=== PATIENT | female | born 1975 | race American Indian/Alaskan Native ===

== ENCOUNTER 2019-03-23 10:39 | Emergency (ER) | payer BC, OTHER ==
--- NOTE | 2019-03-23 11:14 | Emergency Department Report ---
Chief Complaint: Abdominal Pain Stated Complaint: SEVERE ABD PAIN Time Seen by Provider: 03/23/19 11:11 - HPI History of Present Illness: pt presents to the ED with c/o left flank to LLQ pain that began two days subjective fever (+)nausea (+) constipation, had small hard BM last night no V/D PMHx thyroidectomy, fibroids, IUD occ drinker no smoker no drug use MSE screening note: Focused history and physical exam performed. Due to findings the following was ordered: labs, UA, urine preg ED Disposition for MSE Condition: Stable Instructions: Abdominal Pain (ED)
[2019-03-23 11:39] LABS: Basophils % (Auto) 0.5 % (0.0-1.8); Eosinophils # (Auto) 0.1 K/mm3 (0.0-0.4); Eosinophils % (Auto) 0.8 % (0.0-4.3); Hematocrit 38.9 % (30.3-42.9); Hemoglobin 13.4 gm/dl (10.1-14.3); Lymphocytes % (Auto) 43.3 % (13.4-35.0); Mean Corpuscular HGB Conc 35 % (30-34); Mean Corpuscular Volume 87 fl (79-97); Monocytes # (Auto) 0.3 K/mm3 (0.0-0.8); Monocytes % (Auto) 4.3 % (0.0-7.3); Platelet Count 315 K/mm3 (140-440); Red Blood Count 4.47 M/mm3 (3.65-5.03); Red Cell Distribution Width 13.9 % (13.2-15.2)
[2019-03-23 12:00] LABS: Alanine Aminotransferase 14 units/L (7-56); BUN/Creatinine Ratio 11; Blood Urea Nitrogen 9 mg/dL (7-17); Calcium 8.8 mg/dL (8.4-10.2); Hemolysis Index 4
[2019-03-23] MEDS ORDERED: SUBLIMAZE IV ONE (12:44)
[2019-03-23] MEDS ORDERED: ZOFRAN IV ONE (12:44)
[2019-03-23] MEDS ORDERED: NACL 0.9% 1000 ML 1,000 ML IV ONE (12:44)
--- NOTE | 2019-03-23 12:49 | Emergency Department Report ---
HPI - General Chief Complaint: Abdominal Pain Time Seen by Provider: 03/23/19 11:11 - HPI HPI: Room 9 The patient is a 43-year-old female presenting with a chief complaint of abdominal pain. Patient states her symptoms began 2 days ago with intermittent left flank left lower quadrant abdominal pain. Patient describes the pain as sharp and dull in nature. Patient is to nausea but denies vomiting dysuria or hematuria. The patient is to subjective fever. The patient states she's been taking IV Profenal home but it has not helped Location: Left flank Duration: 2 days Quality: Sharp/Dull Severity: 09/03 Modifying factors: [see above] Context: [see above] Mode of transportation: [not driving] ED Past Medical Hx - Past Medical History Previous Medical History?: Yes Additional medical history: Thyroidectomy 2009,fibroids,IUD - Surgical History Additional Surgical History: Hernia repair, Ovarian cyst removal - Family History Family history: no significant - Social History Smoking Status: Never Smoker Substance Use Type: Alcohol (occasional) - Medications Home Medications: Home Medications Medication Instructions Recorded Confirmed Last Taken Type Famotidine/Ca Carb/Mag Hydrox 1 each PO BID #20 tab.chew 02/21/17 Unknown Rx [Pepcid Complete Tablet Chew] Levothyroxine (Nf) [Synthroid (Nf)] 200 mcg PO QAM #30 tablet 02/21/17 Unknown Rx Sulfamethoxazole/Trimethoprim 1 each PO BID #14 tablet 02/21/17 Unknown Rx [Bactrim DS TAB] oxyCODONE /ACETAMINOPHEN [Percocet 1 tab PO QHS PRN #10 tablet 02/21/17 Unknown Rx 5/325] HYDROcodone/ACETAMINOPHEN [[place] 1 - 2 each PO Q6H PRN #14 tablet 03/23/19 Unknown Rx 5-325 Tablet] Ibuprofen [Motrin 800 MG tab] 800 mg PO Q8HR PRN #20 tablet 03/23/19 Unknown Rx ED Review of Systems ROS: Stated complaint: SEVERE ABD PAIN Other details as noted in HPI Constitutional: fever (subjective) Eyes: denies: eye pain ENT: denies: throat pain Respiratory: no symptoms reported Cardiovascular: denies: chest pain Endocrine: no symptoms reported Gastrointestinal: abdominal pain, nausea. denies: vomiting Genitourinary: denies: dysuria, hematuria Musculoskeletal: back pain Neurological: denies: headache Physical Exam - Physical Exam Vital Signs: Vital Signs 03/23/19 11:11 Temperature 98 F Pulse Rate 89 Respiratory 18 Rate Blood Pressure 122/81 O2 Sat by Pulse 97 Oximetry Physical Exam: GENERAL: The patient is well-developed well-nourished female lying on stretcher appearing to be in mild discomfort. [] HEENT: Normocephalic. Atraumatic. Extraocular motions are intact. Patient has moist mucous membranes. NECK: Supple. Trachea midline CHEST/LUNGS: Clear to auscultation. There is no respiratory distress noted. HEART/CARDIOVASCULAR: Regular. There is no tachycardia. There is no gallop rub or murmur. ABDOMEN: Abdomen is soft, with tenderness to palpation in the left lower quadrant and left upper quadrant.. Patient has normal bowel sounds. There is no abdominal distention. SKIN: There is no rash. There is no edema. There is no diaphoresis. NEURO: The patient is awake, alert, and oriented. The patient is cooperative. The patient has normal speech MUSCULOSKELETAL: There is left CVA tenderness. There is no evidence of acute injury. ED Course Vital Signs 03/23/19 11:11 Temperature 98 F Pulse Rate 89 Respiratory 18 Rate Blood Pressure 122/81 O2 Sat by Pulse 97 Oximetry ED Medical Decision Making - Lab Data Result diagrams: 03/23/19 11:20 03/23/19 11:20 Laboratory Tests 03/23/19 03/23/19 03/23/19 11:20 11:20 11:55 WBC 7.0 RBC 4.47 Hgb 13.4 Hct 38.9 MCV 87 MCH 30 MCHC 35 H RDW 13.9 Plt Count 315 Lymph % (Auto) 43.3 H [place] % (Auto) 4.3 Eos % (Auto) 0.8 Baso % (Auto) 0.5 Lymph # 3.0 [place] # 0.3 Eos # 0.1 Baso # 0.0 Seg Neutrophils % 51.1 Seg Neutrophils # 3.5 Sodium 140 Potassium 3.7 Chloride 102.9 Carbon Dioxide 26 Anion Gap 15 BUN 9 Creatinine 0.8 Estimated GFR > 60 BUN/Creatinine Ratio 11 Glucose 124 H Calcium 8.8 Total Bilirubin 1.20 AST 13 ALT 14 Alkaline Phosphatase 79 Total Protein 7.0 Albumin 4.0 Albumin/Globulin Ratio 1.3 Lipase 32 Urine Color Yellow Urine Turbidity Cloudy Urine pH 5.0 Ur Specific [place] 1.031 H Urine Protein 30 mg/dl Urine Glucose (UA) Neg Urine Ketones Neg Urine Blood Neg Urine Nitrite Neg Urine Bilirubin Neg Urine Urobilinogen 4.0 Ur Leukocyte Esterase Neg Urine WBC (Auto) 1.0 Urine RBC (Auto) 2.0 U Epithel Cells (Auto) 33.0 H Urine Bacteria (Auto) 1+ Urine Mucus Few Urine HCG, Qual Negative - Radiology Data Radiology results: report reviewed (CT abdomen and pelvis), image reviewed (CT abdomen and pelvis) [facility] [address] [place] [address] Cat Scan Report Signed Patient: DESTINY LEIVA MR#: [id number] : 1975 Acct:[id number] Age/Sex: 43 / F ADM Date: 03/23/19 Loc: ED Attending Dr: Ordering Physician: ANIL CHEN MD Date of Service: 03/23/19 Procedure(s): CT abdomen pelvis wo/w con Accession Number(s): [id number] cc: ANIL CHEN MD CT ABDOMEN PELVIS WITH AND WITHOUT CONTRAST: HISTORY: Left flank pain. COMPARISON: none. TECHNIQUE: Helical CT in 1.25mm intervals before and after IV contrast. Sagittal and coronal reconstructions. FINDINGS: Lung bases: Normal. Liver: Normal. Biliary system: Normal. Pancreas: Normal. Spleen: Normal. Kidneys/ureters/bladder: Normal. Adrenal glands: Normal. Aorta: Normal. Intestines: Within normal limits. Appendix: Normal. Pelvic viscera: There are multiple partially calcified uterine fibroids. A 1.8 cm left ovarian cyst is identified. The right adnexa is unremarkable. Ascites: None. Adenopathy: None. Musculoskeletal: Normal. IMPRESSION: Uterine fibroid disease. 1.8 cm left ovarian cyst. Transcribed By: TTR Dictated By: PHILIP LU JR, MD Elec tronically Authenticated By: PHILIP LU JR, MD Signed Date/Time: 03/23/191444 DD/ 42 TD/TT: 03/23/191444 - Differential Diagnosis diverticulitis, renal colic, pyelonephritis Critical care attestation.: If time is entered above; I have spent that time in minutes in the direct care of this critically ill patient, excluding procedure time. ED Disposition Clinical Impression: Left ovarian cyst, Uterine fibroid, Acute abdominal pain Disposition: - TO HOME OR SELFCARE Is pt being admited?: No Does the pt Need Aspirin: No Condition: Stable Instructions: Abdominal Pain (ED) Additional Instructions: Return to the emergency department immediately should you develop worsening symptoms, fever, inability to tolerate food or liquid or any other concerns. Prescriptions: Ibuprofen [Motrin 800 MG tab] 800 mg PO Q8HR PRN #20 tablet PRN Reason: Pain, Moderate (4-6) HYDROcodone/ACETAMINOPHEN [[place] 5-325 Tablet] 1 - 2 each PO Q6H PRN #14 tablet PRN Reason: Pain , Severe (7-10) Referrals: your, [facility]PER[facility] [Other] - 3-5 Days Time of Disposition: 14:57
[2019-03-23 12:55] LABS: HCG Qualitative,Urine Negative (Negative)
[2019-03-23 13:10] LABS: Bacteria,Urine 1+ /HPF (Negative); Bilirubin,Urine NEG (Negative); Blood,Urine NEG (Negative); Color,Urine Yellow (Yellow); Mucus,Urine FEW /HPF
--- NOTE | 2019-03-23 14:49 | Cat Scan Report ---
CT ABDOMEN PELVIS WITH AND WITHOUT CONTRAST: HISTORY: Left flank pain. COMPARISON: none. TECHNIQUE: Helical CT in 1.25mm intervals before and after IV contrast. Sagittal and coronal reconstructions. FINDINGS: Lung bases: Normal. Liver: Normal. Biliary system: Normal. Pancreas: Normal. Spleen: Normal. Kidneys/ureters/bladder: Normal. Adrenal glands: Normal. Aorta: Normal. Intestines: Within normal limits. Appendix: Normal. Pelvic viscera: There are multiple partially calcified uterine fibroids. A 1.8 cm left ovarian cyst is identified. The right adnexa is unremarkable. Ascites: None. Adenopathy: None. Musculoskeletal: Normal. IMPRESSION: Uterine fibroid disease. 1.8 cm left ovarian cyst.
[2019-03-23 16:36] VITALS: BP 126/72
== END 2019-03-23 15:40 | disposition home or self-care (01) ==
LOC: ED 10:39
DX: N83.202 Unspecified ovarian cyst, left side (principal); D25.9 Leiomyoma of uterus, unspecified; E89.0 Postprocedural hypothyroidism
CPT/HCPCS: 36415; 74178; 80053; 81001; 81025; 83690; 85025; 96374; 96375; 99284; J2405; J3010; J7030; Q9967

== ENCOUNTER 2019-03-25 20:27 | Emergency (ER) | payer BC ==
--- NOTE | 2019-03-25 20:44 | Emergency Department Report ---
Blank Doc - Documentation Documentation: This is a 43-year-old female that presents with lower back pain. Denies any i njuries. Denies any urinary symptoms. This initial assessment/diagnostic orders/clinical plan/treatment(s) is/are subject to change based on patient's health status, clinical progression and re-assessment by fellow clinical providers in the ED. Further treatment and workup at subsequent clinical providers discretion. Patient/guardians urged not to elope from the ED as their condition may be serious if not clinically assessed and managed. Initial orders include: 1- Patient sent to [facility] for further evaluation and treatment
[2019-03-25] MEDS ORDERED: TORADOL PO ONE (21:46)
[2019-03-25] MEDS ORDERED: FLEXERIL PO ONE (21:48)
[2019-03-25] MEDS ORDERED: DELTASONE PO NR (22:00)
--- NOTE | 2019-03-25 22:58 | Emergency Department Report ---
ED Back Pain/Injury HPI - General Chief Complaint: Back Pain/Injury Stated Complaint: BACK PAIN Time Seen by Provider: 03/25/19 20:42 Source: patient Mode of arrival: Ambulatory Limitations: No Limitations - History of Present Illness Initial Comments: Patient is a 43-year-old [place] female with a past medical history presents to the ED with complaint of acute onset persistent nontraumatic low back pain for the last 5 days. Patient says that she woke up with pain 5 days ago, the pain has been worsening every day especially with any active range of motion or physical activity. Patient denies hematuria, urinary frequency and urgency, dysuria, vaginal bleeding or traumatic injury, fall, heavy lifting, abdominal pain, neck pain, headache, dizziness, numbness, weakness and tingling of lower extremities bilaterally, saddle paresthesia, urinary or bowel incontinence. Patient states that she has been taking ibuprofen as needed for pain, and also [place] 5 mg/325 mg as needed for pain with no relief. MD Complaint: back pain -: Sudden, days(s) (5) Similar Symptoms Previously: No Place: home Radiation: none Severity: severe Severity scale (0 -10): 8 Quality: sharp Consistency: constant Improves With: immobilization Worsens With: movement, walking Context: other (Spontaneous, woke up with pain) Associated Symptoms: denies other symptoms Treatments Prior to Arrival: NSAIDS, prescription analgesics - Related Data Previous Rx's Medication Instructions Recorded Last Taken Type Famotidine/Ca Carb/Mag Hydrox 1 each PO BID #20 tab.chew 02/21/17 Unknown Rx [Pepcid Complete Tablet Chew] Levothyroxine (Nf) [Synthroid (Nf)] 200 mcg PO QAM #30 tablet 02/21/17 Unknown Rx Sulfamethoxazole/Trimethoprim 1 each PO BID #14 tablet 02/21/17 Unknown Rx [Bactrim DS TAB] oxyCODONE /ACETAMINOPHEN [Percocet 1 tab PO QHS PRN #10 tablet 02/21/17 Unknown Rx 5/325] HYDROcodone/ACETAMINOPHEN [[place] 1 - 2 each PO Q6H PRN #14 tablet 03/23/19 Unknown Rx 5-325 Tablet] Ibuprofen [Motrin 800 MG tab] 800 mg PO Q8HR PRN #20 tablet 03/23/19 Unknown Rx Cyclobenzaprine [Flexeril] 10 mg PO Q8H PRN #21 tablet 03/25/19 Unknown Rx predniSONE [Deltasone] 60 mg PO DAILY #15 tablet 03/25/19 Unknown Rx Allergies Allergy/AdvReac Type Severity Reaction Status Date / Time No Known Allergies Allergy Verified 03/23/19 10:42 ED Review of Systems ROS: Stated complaint: BACK PAIN Other details as noted in HPI Comment: All other systems reviewed and negative Constitutional: no symptoms reported, see HPI Eyes: as per HPI ENT: as per HPI Respiratory: no symptoms reported, see HPI Cardiovascular: as per HPI Endocrine: no symptoms reported Gastrointestinal: as per HPI Genitourinary: as per HPI. denies: urgency, dysuria, frequency, hematuria Musculoskeletal: back pain, arthralgia Skin: as per HPI Neurological: as per HPI. denies: numbness, paresthesias Psychiatric: as per HPI Hematological/Lymphatic: as per HPI ED Past Medical Hx - Past Medical History Previous Medical History?: Yes Additional medical history: Thyroidectomy - Surgical History Past Surgical History?: Yes Additional Surgical History: Hernia repair, Ovarian cyst removal, Thyroidectomy - Social History Smoking Status: Never Smoker Substance Use Type: None - Medications Home Medications: Home Medications Medication Instructions Recorded Confirmed Last Taken Type Famotidine/Ca Carb/Mag Hydrox 1 each PO BID #20 tab.chew 02/21/17 Unknown Rx [Pepcid Complete Tablet Chew] Levothyroxine (Nf) [Synthroid (Nf)] 200 mcg PO QAM #30 tablet 02/21/17 Unknown Rx Sulfamethoxazole/Trimethoprim 1 each PO BID #14 tablet 02/21/17 Unknown Rx [Bactrim DS TAB] oxyCODONE /ACETAMINOPHEN [Percocet 1 tab PO QHS PRN #10 tablet 02/21/17 Unknown Rx 5/325] HYDROcodone/ACETAMINOPHEN [[place] 1 - 2 each PO Q6H PRN #14 tablet 03/23/19 Unknown Rx 5-325 Tablet] Ibuprofen [Motrin 800 MG tab] 800 mg PO Q8HR PRN #20 tablet 03/23/19 Unknown Rx Cyclobenzaprine [Flexeril] 10 mg PO Q8H PRN #21 tablet 03/25/19 Unknown Rx predniSONE [Deltasone] 60 mg PO DAILY #15 tablet 03/25/19 Unknown Rx ED Physical Exam - General Limitations: No Limitations General appearance: alert, in no apparent distress - Head Head exam: Present: atraumatic, normocephalic, normal inspection - Eye Eye exam: Present: normal appearance, PERRL, EOMI Pupils: Present: normal accommodation - ENT ENT exam: Present: normal exam, normal orophraynx, mucous membranes moist, TM's normal bilaterally, normal external ear exam - Neck Neck exam: Present: normal inspection, full ROM - Respiratory Respiratory exam: Present: normal lung sounds bilaterally - Cardiovascular Cardiovascular Exam: Present: regular rate, normal rhythm, normal heart sounds - GI/Abdominal GI/Abdominal exam: Present: soft, normal bowel sounds - Rectal Rectal exam: Present: deferred - Extremities Exam Extremities exam: Present: normal inspection, full ROM, normal capillary refill - Back Exam Back exam: Present: tenderness, muscle spasm (palpable lumbar sacral paraspinal tenderness), paraspinal tenderness - Neurological Exam Neurological exam: Present: alert, oriented X3, CN II-XII intact, normal gait, reflexes normal - Psychiatric Psychiatric exam: Present: normal affect - Skin Skin exam: Present: warm, dry, intact, normal color ED Course Vital Signs 03/25/19 20:42 Pulse Rate 92 H Respiratory 18 Rate Blood Pressure 138/77 O2 Sat by Pulse 97 Oximetry - Reevaluation(s) Reevaluation #1: 03/25/19 23:02 Patient presented to the ED with Coumadin and acute low back pain and was treated in the ED with pain medications and muscle relaxants. On reevaluation, patient's pain is well controlled and patient is hemodynamically stable. Patient is sent home on medications and advised to follow up with their primary care physician in 5-7 days for reevaluation. ED Medical Decision Making - Medical Decision Making Patient is alert and oriented 3 and is nursing and distress with normal vital signs. Patient presented to the ED with low back pain which is nontraumatic and nonradiating. This was on findings patient's symptoms are likely musculoskeletal in origin. Patient was treated in the ED with muscle relaxants, anti-inflammatory medications, ketorolac 10 mg oral tablet and prednisone 60 mg oral tablet and 80. On reevaluation, patient's pain is well controlled with medications, and patient discharged home on medications and advised to follow-up with her primary care physician in 5-7 days for reevaluation. Patient advised to return to the ED immediately if symptoms get worse. - Differential Diagnosis Muscle spasm of lower back, Acute urinary tract infection, sciatica Critical care attestation.: If time is entered above; I have spent that time in minutes in the direct care of this critically ill patient, excluding procedure time. ED Disposition Clinical Impression: Spasm of muscle of lower back Acute low back pain Qualifiers: Back pain laterality: unspecified Sciatica presence: without sciatica Qualified Code(s): M54.5 - Low back pain Disposition: TO HOME OR SELFCARE Is pt being admited?: No Does the pt Need Aspirin: No Condition: Stable Instructions: Muscle Spasm (ED), Acute Low Back Pain (ED) Additional Instructions: Take medications and food, drink plenty of fluids and follow up with your primary care physician in 5-7 days for reevaluation. Return to the ED immediately if symptoms get worse. Prescriptions: predniSONE [Deltasone] 60 mg PO DAILY #15 tablet Cyclobenzaprine [Flexeril] 10 mg PO Q8H PRN #21 tablet PRN Reason: Spasms Referrals: [facility] [Primary Care Provider] - 3-5 Days Time of Disposition: 23:09 Print Language: AZERI
[2019-03-25 23:39] VITALS: BP 117/75
== END 2019-03-25 23:38 | disposition home or self-care (01) ==
LOC: ED 20:27
DX: M62.830 Muscle spasm of back (principal); M54.5 Low back pain
CPT/HCPCS: 99282; J7512

== ENCOUNTER 2019-04-30 08:52 | Day surgery (SDC) | payer BC ==
--- NOTE | 2019-04-29 15:14 | History and Physical Report ---
History of Present Illness Date of examination: 04/23/19 History of present illness: Patient has been reassessed/reevaluated. H&P has been reviewed. No interval changes. This is a 43 years old female who presents for removal submucosal myomas and IUD placed in 2013.. Patient complains of pain and on exam IUD strings are not seen. Patient's work up has included hysterosonogram with finding of submucosal myomas and IUD in place. Patient Profile: 43 Years Old Female Height: 68 inches (172.72 cm) Weight: 237 pounds BMI: 36.03 Menstrual History: On BCP's at conception: no Current Method of Contraception: IUD Past History : 3 Term Births: 2 Premature Births: 0 Living Children: 2 Para: 2 Mult. Births: 0 Prev : 0 Aborta: 1 Elect. Ab: 0 Spont. 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 of genital herpes: no Partner hx. of genital herpes: no Hx of STD: chlamydia Current Allergies: No known allergies Past Medical History: Goiter Fibroids Past Surgical History: [facility] OVARIAN CYSTECTOMY total thyroidectomy UFE D&C: Family History Summary: Other family member - Has No Family History of Breast Cancer - Entered On: 03/12/2019 Other family member - Has No Family History of Colon Cancer - Entered On: 03/12/2019 Other family member - Has No Family History of Ovarvian Cancer - Entered On: 03/12/2019 General Comments - FH: Family History of Diabetes mother, mgm (crf) Social History: Patient is single/engaged Smoking History: Patient has never smoked. Risk Factors: Smoked Tobacco Use: Never smoker Drug use: no HIV high-risk behavior: no Alcohol use: yes Type: occ Exercise: no Seatbelt use: 100 % Review of Systems General Denies fever, chills, sweats, anorexia, fatigue, weakness, malaise, weight loss and sleep disorder. Complains of pelvic pain. Denies vaginal discharge, incontinence, dysuria, hematuria, urinary frequency, amenorrhea, menorrhagia, abnormal vaginal bleeding, genital sores, decreased libido, painful periods, painful sex, urinary urgency, hot flashes, vaginal dryness, vaginal itching and vaginal odor. CV Denies chest pains, palpitations, syncope, dyspnea on exertion, orthopnea, PND and peripheral edema. Resp Denies cough, dyspnea at rest, excessive sputum, hemoptysis, wheezing and pleurisy. GI Denies nausea, vomiting, diarrhea, constipation, change in bowel habits, abdominal pain, melena, hematochezia, jaundice, gas/bloating, indigestion/heartburn, dysphagia and odynophagia. Breast Denies left breast lump, right breast lump, nipple discharge, bloody discharge from nipple, breast pain, abnormal mammogram and breast enlargement. Psych Denies depression, anxiety, irritability and mood swings. Past History Past Medical History: hypothyroidism, other (See HPI) Past Surgical History: thyroidectomy, Other (See HPI) Social history: full code, other (See HPI) Medications and Allergies Allergies Allergy/AdvReac Type Severity Reaction Status Date / Time No Known Allergies Allergy Verified 04/21/19 16:08 Home Medications Medication Instructions Recorded Confirmed Last Taken Type Levothyroxine (Nf) [Synthroid (Nf)] 125 mcg PO QAM 04/21/19 04/21/19 Unknown History Review of Systems Constitutional: other (See HPI) Exam - Physical Exam Narrative exam: HEENT: normocephalic, no lesions or deformities Skin no lesions Chest: respiratory effort normal, clear to auscultation CV: regular, normal S1-S2, no murmur, no rub, no gallop Abdomen: Obese, normal bowel sounds, soft, nontender, no HSM Musculoskeletal: grossly normal ROM in joints, no joint tenderness or muscle weakness Neuro: no gross anomalities Extremities: no clubbing, cyanosis, or edema 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 No evidence of cystocele or rectocele. Cervix: normal appearance, no lesions, no discharge, iud string not seen Uterus: enlarged 10 to 12 weeks in size Adnexae: no masses or tenderness Rectovaginal: exam defered Results - Labs CBC & Chem 7: 04/30/19 09:55 Assessment and Plan - Patient Problems (1) Submucous leiomyoma of uterus Current Visit: No Status: Acute Plan to address problem: Diagnosis explained to patient . Questions answered. Discussed with patient various medical, surgical and radiological therapies common for treatment including myomectomy hysterectomy and uterine artery embolization Patient desires hysteroscopic myomectomy Discussed risk of surgery including infection, bleeding and risk of perforating her uterus. Questions answered. Patient understands and desires to proceed (2) Displacement of intrauterine contraceptive device, sequela Current Visit: No Status: Acute Plan to address problem: Patient desires removal. Will removal hysteroscopically. Risks as noted above. (3) Hypothyroidism Current Visit: No Status: Chronic Qualifiers: Hypothyroidism type: postoperative Qualified Code(s): E89.0 - Postprocedural hypothyroidism
--- NOTE | 2019-04-30 09:26 | Anesthesia Day of Surgery ---
Anesthesia Day of Surgery - Day of Surgery Patient Examined: Yes Patient H&P Reviewed: Yes Patient is NPO: Yes
[2019-04-30] MEDS ORDERED: ZOFRAN IV PRN (09:28)
[2019-04-30] MEDS ORDERED: SUBLIMAZE IV PRN (09:28)
--- NOTE | 2019-04-30 09:29 | Anesthesia Consultation ---
Anesthesia Consult and Med Hx Date of service: 04/30/19 - Airway Anesthetic Teeth Evaluation: Good, Crowns ROM Head & Neck: Adequate Mental/Hyoid Distance: Adequate Mallampati Class: Class II Intubation Access Assessment: Good - Pre-Operative Health Status ASA Pre-Surgery Classification: ASA2 Proposed Anesthetic Plan: General - Cardiovascular System Hx Hypertension: No (ECHO/ETT 2016 OK per pt) Hx Heart Attack/AMI: No - Central Nervous System Hx Psychiatric Problems: No - Endocrine Hx Thyroid Disease: Yes Hx Hypothyroidism: Yes (Thyroidectomy) - Other Systems Hx Alcohol Use: Yes (Occas) Hx Cancer: No
[2019-04-30] MEDS ORDERED: NEURONTIN PO NR (10:00)
[2019-04-30] MEDS ORDERED: LACTATED RINGERS 1,000 ML IV SCH (10:00)
[2019-04-30] MEDS ORDERED: VERSED IV NR (10:00)
[2019-04-30] MEDS ORDERED: TYLENOL PO NR (10:00)
[2019-04-30 10:15] LABS: Basophils % (Auto) 0.8 % (0.0-1.8); Eosinophils # (Auto) 0.1 K/mm3 (0.0-0.4); Eosinophils % (Auto) 1.5 % (0.0-4.3); Hematocrit 36.6 % (30.3-42.9); Lymphocytes # (Auto) 2.8 K/mm3 (1.2-5.4); Lymphocytes % (Auto) 45.4 % (13.4-35.0); Mean Corpuscular HGB Conc 35 % (30-34); Mean Corpuscular Volume 86 fl (79-97); Monocytes # (Auto) 0.4 K/mm3 (0.0-0.8); Monocytes % (Auto) 6.6 % (0.0-7.3); Platelet Count 316 K/mm3 (140-440); Red Blood Count 4.26 M/mm3 (3.65-5.03); Red Cell Distribution Width 13.9 % (13.2-15.2)
[2019-04-30] MEDS ORDERED: XYLOCAINE MPF 2% ONE (11:20)
[2019-04-30] MEDS ORDERED: SUBLIMAZE ONE (11:21)
[2019-04-30] MEDS ORDERED: DIPRIVAN 10 MG/ML IV ONE (11:21)
[2019-04-30] MEDS ORDERED: NACL 0.9% IR ONE (12:15)
--- NOTE | 2019-04-30 12:34 | Operative Report ---
Operative Report Operative Report: Date of procedure: 04/30/2019 Pre-operative diagnosis: Patient with some mucosal myoma and displacement of IUD Post-operative diagnosis: Same Procedure name(s): Operative hysteroscopy with MyoSure with removal of Mirena IUD Surgeon: Sawyer Rincon MD Roll Contour Grinder: [] Anesthesia: Gen. EBL: Minimal Complications: None Findings: Patient on exam under anesthesia revealed multiple myomas uterus approximately to 12 weeks size and time of hysteroscopy did have strings in the cervical os and IUD and a small submucosal myomas and very thicken endometrium. Impressions of intramural myomas into the uterine cavity Specimen(s): Uterine mass Procedure: Patient was brought into the operating room, where general anesthesia was induced without any difficulty. Patient was placed in dorsal lithotomy position. Prep and drape in the usual sterile manner. Timeout procedure was performed. The patient's bladder was emptied with a red rubber catheter. Speculum was placed in the vagina. Tenaculum was placed at 12:00 on the cervix. The cervical os was dilated to a 19 Tamazight diameter. The IUD string were seen through the os grasped and IUD was pulled through the cervical os intact. The hysteroscope was placed and the findings noted above. The MyoSure device was primed. The device was placed through the cervical os. The mass was then removed using the MyoSure. The mass was completely removed with no evidence of puncture on the uterine wall. All instruments were then removed. The patient was awakened in the operating room and accompanied to recovery room in good condition.
--- NOTE | 2019-04-30 12:35 | Short Stay Summary ---
Short Stay Documentation Date of service: 04/30/19 - History H&P: dictated Past Medical History: hypothyroidism, other (See HPI) Past Surgical History: thyroidectomy, Other (See HPI) Social history: full code, other (See HPI) - Allergies and Medications Current Medications: Allergies No Known Allergies Allergy (Verified 04/21/19 16:08) Home Medications Medication Instructions Recorded Confirmed Last Taken Type Levothyroxine (Nf) [Synthroid (Nf)] 125 mcg PO QAM 04/21/19 04/21/19 Unknown History Active Medications Acetaminophen (Tylenol) 650 mg PO PREOP NR Stop: 04/30/19 16:00 Celecoxib (Celebrex) 200 mg PO PREOP NR Stop: 04/30/19 16:00 Fentanyl (Sublimaze) 50 mcg IV Q5MIN PRN PRN Reason: Pain , Severe (7-10) Stop: 04/30/19 20:00 Gabapentin (Neurontin) 300 mg PO PREOP NR Stop: 04/30/19 16:00 Lactated Ringer's (Lactated Ringers) 1,000 mls @ 75 mls/hr IV DIRECT BEAN Midazolam HCl (Versed) 2 mg IV PREOP NR Stop: 04/30/19 23:59 Ondansetron HCl (Zofran) 4 mg IV ONCE PRN PRN Reason: Nausea And Vomiting Stop: 04/30/19 16:00 - Brief post op/procedure progress note Date of procedure: 04/30/19 (see dictated operative note) - Hospital course Hospital course: Patient was admitted underwent the above him procedure without any complications. Patient will be discharged with follow-up in office in 1-2 weeks for postop check. - Disposition Condition at discharge: Good Disposition: DC-01 TO HOME OR SELFCARE - Discharge Diagnoses (1) Submucous leiomyoma of uterus Status: Acute (2) Displacement of intrauterine contraceptive device, sequela Status: Resolved (3) Hypothyroidism Status: Chronic Qualifiers: Hypothyroidism type: postoperative Qualified Code(s): E89.0 - Postprocedural hypothyroidism Short Stay Discharge Plan Activity: advance as tolerated Diet: regular Follow up with: PRIMARY CARE, [Primary Care Provider] - 7 Days Prescriptions: Ibuprofen [Motrin 800 MG tab] 800 mg PO Q6H PRN #30 tablet PRN Reason: Pain Acetaminophen/Codeine [Tylenol #3] 1 tab PO Q4HR PRN #10 tablet PRN Reason: Pain DOXYCYCLINE Hyclate [Vibramycin CAP] 100 mg PO Q12HR #14 capsule
[2019-04-30] MEDS ORDERED: TYLENOL #3 PO NR (13:30)
[2019-04-30] MEDS ORDERED: TYLENOL #3 ONE (13:32)
[2019-04-30 14:20] VITALS: BP 106/68
--- NOTE | 2019-04-30 15:41 | Post Anesthesia Evaluation ---
- Post Anesthesia Evaluation Patient Participated: Yes Airway Patent: Yes Stable Respiratory Function: Yes Nausea/Vomiting: No Temp > 96.8F: Yes Pain Manageable: Yes Adequeate Hydration: Yes Anesthesia Complications: No Block Receding Appropriately: Not Applicable Patient on Ventilator: No
== END 2019-04-30 08:53 | disposition home or self-care (01) ==
LOC: OR 08:52
PROVIDERS: ATTEND Obstetrics & Gynecology
DX: T83.32XA Displacement of intrauterine contraceptive device, initial encounter (principal); N85.8 Other specified noninflammatory disorders of uterus; I10 Essential (primary) hypertension; I20.8 Other forms of angina pectoris; E03.9 Hypothyroidism, unspecified; E66.9 Obesity, unspecified; Z98.890 Other specified postprocedural states; Z68.34 Body mass index [BMI] 34.0-34.9, adult; Z72.89 Other problems related to lifestyle; Z79.899 Other long term (current) drug therapy
CPT/HCPCS: 36415; 58301; 58558; 81025; 85025; 88300; 88305; A4217; J2250; J2704; J3010; J7120; 88302

== ENCOUNTER 2022-06-24 15:10 | Emergency (ER) | payer BC ==
[2022-06-24] MEDS ORDERED: ASPIRIN 325 MG TAB PO ONE ×2 (15:33→18:04)
--- NOTE | 2022-06-24 16:22 | XRay Report ---
CHEST 2 VIEWS INDICATION / CLINICAL INFORMATION: chest pain. FINDINGS: SUPPORT DEVICES: None. HEART / MEDIASTINUM: Abnormal lobular opacity along the right paratracheal stripe suspicious for unde rlying adenopathy. LUNGS / PLEURA: No significant pulmonary or pleural abnormality. No pneumothorax. ADDITIONAL FINDINGS: No significant additional findings. IMPRESSION: Findings suspicious for mediastinal adenopathy. CT chest is suggested for further evaluation. Signer Name: Julio Roman MD Signed: 06/24/2022 4:18 PM Workstation Name: [id number]
[2022-06-24 16:54] LABS: Basophils # (Auto) 0.1 K/mm3 (0.0-0.1); Basophils % (Auto) 0.8 % (0.0-1.8); Eosinophils # (Auto) 0.1 K/mm3 (0.0-0.4); Eosinophils % (Auto) 1.8 % (0.0-4.3); Hematocrit 38.7 % (30.3-42.9); Hemoglobin 13.3 gm/dl (10.1-14.3); Lymphocytes # (Auto) 4.2 K/mm3 (1.2-5.4); Lymphocytes % (Auto) 50.3 % (13.4-35.0); Mean Corpuscular HGB Conc 34 % (30-34); Mean Corpuscular Volume 86 fl (79-97); Monocytes # (Auto) 0.5 K/mm3 (0.0-0.8); Monocytes % (Auto) 6.2 % (0.0-7.3); Platelet Count 347 K/mm3 (140-440); Red Blood Count 4.52 M/mm3 (3.65-5.03); Red Cell Distribution Width 14.2 % (13.2-15.2)
[2022-06-24 17:14] LABS: Alanine Aminotransferase 12 units/L (7-56); Albumin 4.2 g/dL (3.9-5); BUN/Creatinine Ratio 9; Blood Urea Nitrogen 8 mg/dL (7-17); Calcium 9.2 mg/dL (8.4-10.2); Hemolysis Index 5
--- NOTE | 2022-06-25 09:48 | Electrocardiograph Report ---
[facility] Test Date: 2022-06-24 Test Time: 15:20:29 Pat Name: DESTINY LEIVA Department: Room: Gender: F Recruiting Consultant: Eleuterio WILL RN : 1975 Requested By: ED DOC Order Number: [id number] Reading MD: Mikel Lugo Measurements Intervals [place] Rate: 101 P: 51 IN: 156 QRS: 39 QRSD: 91 T: 17 QT: 345 QTc: 448 Interpretive Statements Sinus tachycardia Low voltage, precordial leads No previous ECG available for comparison Electronically Signed On 06-25-2022 9:47:47 EDT by Mikel Lugo
== END 2022-06-24 21:27 | disposition left against medical advice (07) ==
LOC: ED 15:10
DX: R07.89 Other chest pain (principal); R20.0 Anesthesia of skin; Z53.21 Procedure and treatment not carried out due to patient leaving prior to being seen by health care provider
CPT/HCPCS: 36415; 71046; 80053; 84484; 85025; 93005